=== PATIENT | female | born 1980 | race Caucasian/White ===

== ENCOUNTER → 2017-07-13 10:41 | Outpatient (REF) | payer OTHER, SELFPAY ==
[2017-07-13 13:48] LABS: Basophils # 0.1 K/mm3 (0-0.2); Basophils % 0.6 % (0.1-2.0); Eosinophils # 0.1 K/mm3 (0.0-0.4); Eosinophils % 0.8 % (0.1-12.0); Hematocrit 49.4 % (37.0-47.0); Hemoglobin 16.7 g/dL (12.2-16.2); Lymphocytes # 2.7 K/mm3 (0.7-4.5); Lymphocytes % 24.8 K/mm3 (10-50); Mean Corpuscular HGB Conc 33.9 g/dL (31.8-35.4); Mean Corpuscular Volume 94.5 fl (81-99); Mean Platelet Volume 7.7 fl (7.4-10.4); Monocytes # 0.4 K/mm3 (0.1-1.0); Monocytes % 3.7 % (1.7-9.3); Neutrophils # 7.5 K/mm3 (1.8-7.8); Neutrophils % 70.1 % (37.0-80.0); Platelet Count 243 K/mm3 (142-424); Red Blood Count 5.23 M/mm3 (4.20-5.40); Red Cell Distribution Width 12.5 % (11.5-17.5); White Blood Count 10.7 K/mm3 (4.8-10.8)
[2017-07-13 14:32] LABS: Alanine Aminotransferase 28 U/L (12-78); Albumin/Globulin Ratio 1.3 (1.1-1.8); Alkaline Phosphatase 86 U/L (46-116); Anion Gap 13.2 mEq/L (5-15); Aspartate Amino Transferase 22 U/L (15-37); Bilirubin,Total 0.3 mg/dL (0.2-1.0); Blood Urea Nitrogen 9 mg/dL (7-18); Calcium 9.6 mg/dL (8.5-10.1); Carbon Dioxide 28 mmol/L (21.0-32.0); Chloride 104 mmol/L (98-107); Chol/HDL Ratio 4.6 (1-3.5); Cholesterol 146 mg/dL (140-200); Creatinine,Serum 0.93 mg/dL (0.55-1.02); Estimated Glomerular Filt Rate 68 ml/min (>60); GFR (African American) 82 ML/MIN (>60); Globulin 3.1 gm/dl (1.3-3.2); Glucose 104 mg/dL (74-106); HDL Cholesterol 32 mg/dL (29-89); LDL Cholesterol 77 mg/dL (0-130); Potassium 4.2 mmoL/L (3.5-5.1); Sodium 141 mmol/L (136-145); Thyroid Stimulating Hormone 1.16 uIU/ml (0.358-3.740); Total Protein,Serum 7.1 gm/dL (6.4-8.2); Triglycerides 184 mg/dL (30-200); VLDL Cholesterol 37 mg/dL (0-40)
[2017-07-13 20:21] LABS: T4 (Thyroxine) 9.6 ug/dl (4.7-13.3)
[2017-07-14 12:58] LABS: Vitamin D 25 Hydroxy 31.4 ng/mL (30.0-100.0)
== END ==
LOC: LAB 10:41
PROVIDERS: Visit Provider Physician Assistant
DX: F32.2 Major depressive disorder, single episode, severe without psychotic features (principal); F31.4 Bipolar disorder, current episode depressed, severe, without psychotic features
CPT/HCPCS: 80053; 80061; 82652; 84436; 84443; 85025

== ENCOUNTER → 2018-01-09 17:46 | Outpatient (REF) | payer OTHER, SELFPAY ==
[2018-01-09 18:00] LABS: Basophils # 0.1 K/mm3 (0-0.2); Basophils % 0.9 % (0.1-2.0); Eosinophils # 0.2 K/mm3 (0.0-0.4); Eosinophils % 1.8 % (0.1-12.0); Hematocrit 47.5 % (37.0-47.0); Hemoglobin 15.9 g/dL (12.2-16.2); Lymphocytes # 2.9 K/mm3 (0.7-4.5); Lymphocytes % 34.8 K/mm3 (10-50); Mean Corpuscular HGB Conc 33.5 g/dL (31.8-35.4); Mean Corpuscular Hemoglobin 32.3 pg (27.0-31.2); Mean Corpuscular Volume 96.3 fl (81-99); Mean Platelet Volume 7.7 fl (7.4-10.4); Monocytes # 0.4 K/mm3 (0.1-1.0); Monocytes % 4.7 % (1.7-9.3); Neutrophils # 4.9 K/mm3 (1.8-7.8); Neutrophils % 57.7 % (37.0-80.0); Platelet Count 213 K/mm3 (142-424); Red Blood Count 4.94 M/mm3 (4.20-5.40); Red Cell Distribution Width 12.5 % (11.5-17.5); White Blood Count 8.4 K/mm3 (4.8-10.8)
[2018-01-09 18:17] LABS: Hemoglobin A1C 5.6 % (0.0-7.0)
[2018-01-09 18:20] LABS: Alanine Aminotransferase 28 U/L (12-78); Albumin Level 3.8 gm/dL (3.4-5.0); Albumin/Globulin Ratio 1.2 (1.1-1.8); Alkaline Phosphatase 105 U/L (46-116); Anion Gap 10.3 mEq/L (5-15); Aspartate Amino Transferase 17 U/L (15-37); Bilirubin,Total 0.2 mg/dL (0.2-1.0); Blood Urea Nitrogen 12 mg/dL (7-18); Calcium 9.3 mg/dL (8.5-10.1); Carbon Dioxide 32 mmol/L (21.0-32.0); Chloride 104 mmol/L (98-107); Chol/HDL Ratio 3.5 (1-3.5); Cholesterol 137 mg/dL (140-200); Creatinine Clearance Estimated 144 mL/min (0-300); Creatinine,Serum 0.89 mg/dL (0.55-1.02); Estimated Glomerular Filt Rate 71 ml/min (>60); GFR (African American) 86 ML/MIN (>60); Globulin 3.2 gm/dl (1.3-3.2); Glucose 86 mg/dL (74-106); HDL Cholesterol 39 mg/dL (29-89); LDL Cholesterol 57 mg/dL (0-130); Potassium 4.3 mmoL/L (3.5-5.1); Sodium 142 mmol/L (136-145); T4 (Thyroxine) 8.9 ug/dl (4.7-13.3); Thyroid Stimulating Hormone 2.15 uIU/ml (0.358-3.740); Triglycerides 203 mg/dL (30-200); VLDL Cholesterol 41 mg/dL (0-40)
[2018-01-12 06:43] LABS: Microalbumin, Urine 5.9 ug/mL (Not Estab.)
== END ==
LOC: LAB 17:46
PROVIDERS: Visit Provider Nurse Practitioner Family
DX: G62.9 Polyneuropathy, unspecified (principal); E11.9 Type 2 diabetes mellitus without complications
CPT/HCPCS: 80053; 80061; 82043; 82652; 83036; 84436; 84443; 85025

== ENCOUNTER → 2018-05-09 09:17 | Outpatient (CLI) | payer OTHER, SELFPAY ==
[2018-05-09 09:53] LABS: Basophils # 0.1 K/mm3 (0-0.2); Basophils % 0.7 % (0.1-2.0); Eosinophils # 0.1 K/mm3 (0.0-0.4); Eosinophils % 1.6 % (0.1-12.0); Hematocrit 45.3 % (37.0-47.0); Hemoglobin 15.7 g/dL (12.2-16.2); Lymphocytes # 2.5 K/mm3 (0.7-4.5); Mean Corpuscular HGB Conc 34.8 g/dL (31.8-35.4); Mean Corpuscular Hemoglobin 32.4 pg (27.0-31.2); Mean Corpuscular Volume 93.1 fl (81-99); Mean Platelet Volume 6.9 fl (7.4-10.4); Monocytes # 0.3 K/mm3 (0.1-1.0); Neutrophils # 5.6 K/mm3 (1.8-7.8); Neutrophils % 64.7 % (37.0-80.0); Platelet Count 258 K/mm3 (142-424); Red Blood Count 4.86 M/mm3 (4.20-5.40); Red Cell Distribution Width 13.6 % (11.5-17.5); White Blood Count 8.7 K/mm3 (4.8-10.8)
[2018-05-09 10:46] LABS: Hemoglobin A1C 5.9 % (0.0-7.0)
[2018-05-09 10:56] LABS: Alanine Aminotransferase 30 U/L (12-78); Albumin Level 3.5 gm/dL (3.4-5.0); Albumin/Globulin Ratio 1.1 (1.1-1.8); Alkaline Phosphatase 90 U/L (46-116); Anion Gap 14.1 mEq/L (5-15); Aspartate Amino Transferase 17 U/L (15-37); Bilirubin,Total 0.4 mg/dL (0.2-1.0); Blood Urea Nitrogen 9 mg/dL (7-18); Calcium 8.8 mg/dL (8.5-10.1); Carbon Dioxide 27 mmol/L (21.0-32.0); Chloride 105 mmol/L (98-107); Creatinine,Serum 0.94 mg/dL (0.55-1.02); Estimated Glomerular Filt Rate 67 ml/min (>60); GFR (African American) 81 ML/MIN (>60); Globulin 3.1 gm/dl (1.3-3.2); Glucose 92 mg/dL (74-106); Potassium 4.1 mmoL/L (3.5-5.1); Sodium 142 mmol/L (136-145); Thyroid Stimulating Hormone 2.47 uIU/ml (0.358-3.740); Total Protein,Serum 6.6 gm/dL (6.4-8.2)
== END ==
PROVIDERS: PCP Physician Assistant; Visit Provider Psychiatry & Neurology Psychiatry
DX: F31.81 Bipolar II disorder (principal)
CPT/HCPCS: 36415; 80053; 83036; 84443; 85025

== ENCOUNTER → 2018-11-15 13:16 | Outpatient (CLI) | payer OTHER, SELFPAY ==
[2018-11-15 13:19] LABS: Microscopic, Urine URINE MICROSCOPIC (MICROSCOPIC)
[2018-11-15 14:56] LABS: Appearance,Urine CLEAR (Clear); Bilirubin,Urine Negative (Negative); Blood, Urine 2+ (Negative); Color,Urine YELLOW (Yellow); Glucose,Urine (UA) Negative (Negative); Ketones,Urine Negative (Negative); Leukocyte Esterase,Urine Negative (Negative); Nitrate,Urine Negative (Negative); Protein,Urine Negative (Negative); Specific Gravity, Urine 1.025 (1.005-1.030); Urobilinogen,Urine 0.2 EU/dl (0.2)
[2018-11-15 15:15] LABS: Bacteria,Urine 1+ /lpf; Mucus,Urine Trace /lpf
[2018-11-15 15:29] LABS: Basophils # 0.1 K/mm3 (0-0.2); Basophils % 0.9 % (0.1-2.0); Eosinophils # 0.1 K/mm3 (0.0-0.4); Eosinophils % 1.2 % (0.1-12.0); Hematocrit 43.7 % (37.0-47.0); Hemoglobin 14.7 g/dL (12.2-16.2); Lymphocytes # 2.6 K/mm3 (0.7-4.5); Lymphocytes % 31.7 % (10-50); Mean Corpuscular HGB Conc 33.6 g/dL (31.8-35.4); Mean Corpuscular Volume 98.1 fl (81-99); Mean Platelet Volume 7.2 fl (7.4-10.4); Monocytes # 0.5 K/mm3 (0.1-1.0); Monocytes % 6.1 % (1.7-9.3); Neutrophils # 4.9 K/mm3 (1.8-7.8); Neutrophils % 60.2 % (37.0-80.0); Platelet Count 234 K/mm3 (142-424); Red Blood Count 4.45 M/mm3 (4.20-5.40); Red Cell Distribution Width 13.2 % (11.5-17.5); White Blood Count 8.1 K/mm3 (4.8-10.8)
[2018-11-15 15:41] LABS: Blood Urea Nitrogen 10 mg/dL (7-18); Calcium 8.6 mg/dL (8.5-10.1); Carbon Dioxide 29 mmol/L (21.0-32.0); Chloride 104 mmol/L (98-107); Creatinine,Serum 1.05 mg/dL (0.55-1.02); Estimated Glomerular Filt Rate 58 ml/min (>60); GFR (African American) 71 ML/MIN (>60); Glucose 70 mg/dL (74-106); Sodium 140 mmol/L (136-145)
== END ==
PROVIDERS: Visit Provider Surgery
DX: K42.9 Umbilical hernia without obstruction or gangrene (principal); K46.9 Unspecified abdominal hernia without obstruction or gangrene
CPT/HCPCS: 36415; 80048; 81001; 85025

== ENCOUNTER → 2018-12-20 15:19 | Outpatient (CLI) | payer OTHER, SELFPAY ==
--- NOTE | 2018-12-20 15:25 | CA_ITS ---
APPROVED REPORT Right Lower Extremity Venous Study for DVT. 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 Stinging and burning sensations. Risk Factors Obesity Current Smoker Vein Imaging CFV (R): compressive, spontaneous, phasic, augmentation SFJ (R): compressive, spontaneous, phasic, augmentation FEM (R): compressive, spontaneous, phasic, augmentation POP (R): compressive, spontaneous, phasic, augmentation DFV (R): compressive, spontaneous, phasic, augmentation PTV (R): compressive, spontaneous, phasic, augmentation GSV (R): compressive, spontaneous, phasic, augmentation SSV (R): compressive, spontaneous, phasic, augmentation Peroneals (R):compressive, spontaneous, phasic, augmentation GAS (R): compressive, spontaneous, phasic, augmentation Findings No evidence of DVT or superficial thrombophlebitis in the veins scanned of the right lower extremity. Enlarged groin lymph node noted. Conclusion No evidence of DVT or superficial thrombophlebitis in the veins scanned of the right lower extremity. Enlarged groin lymph node noted. consider ct if sx. persist. Electronically signed by : Maxim Dobbins, 12/20/2018 17:06:28
== END ==
PROVIDERS: PCP Family Medicine; Visit Provider Nurse Practitioner
DX: M79.89 Other specified soft tissue disorders (principal); G89.18 Other acute postprocedural pain
CPT/HCPCS: 93971

== ENCOUNTER → 2019-07-16 10:17 | Outpatient (CLI) | payer OTHER, SELFPAY ==
--- NOTE | 2019-07-16 10:29 | XR_ITS ---
PROCEDURE: XR LUMBAR SPINE MIN 4V CLINICAL INDICATION: LOW BACK PAIN Low back pain radiating into the right leg COMPARISON: LS5 LUMBAR SPINE 5 VIEWS from 10/11/2015 FINDINGS: There is normal alignment. There is mild degenerative disc disease at L4-5 and L5-S1 with facet arthritic changes also present at those levels. There is some minimal anterolisthesis of the coccyx by approximately 6 mm. There is 3 mm anterolisthesis of L4 on L5. no fracture or dislocation. There are mild degenerative changes of the SI joints. There is minimal lumbar curvature convex left. IMPRESSION: Degenerative changes of the lumbar spine with degenerative disc disease at L4-5 and L5-S1 along with facet arthritic changes. These findings have slightly progressed compared to the previous exam. There are degenerative changes also of the SI joints and there is mild anterolisthesis of the coccyx of approximately 6 mm Dictated by: Ollie Newby MD 07/16/2019 11:16 Electronically signed by Ollie Newby MD in [place] 07/16/2019 11:16
--- NOTE | 2019-07-16 10:29 | XR_ITS ---
PROCEDURE: XR ANKLE RT MIN 3V CLINICAL INDICATION: RT ANKLE PAIN COMPARISON: No exams were available for comparison FINDINGS: No acute fracture or dislocation. No lytic or blastic change. There is some minimal spurring of the anterior distal tibia. The ankle mortise is preserved and the talar dome has an unremarkable appearance. There is only a small calcaneal spur and a small enthesophyte at the Achilles insertion. IMPRESSION: Mild osteoarthritic changes with spurring of the anterior and distal aspect the tibia Dictated by: Ollie Newby MD 07/16/2019 11:17 Electronically signed by Ollie Newby MD in [place] 07/16/2019 11:17
== END ==
PROVIDERS: PCP Family Medicine; Visit Provider Nurse Practitioner Family
DX: M54.41 Lumbago with sciatica, right side (principal); M25.571 Pain in right ankle and joints of right foot
CPT/HCPCS: 72110; 73610

== ENCOUNTER 2019-07-26 14:00 | Outpatient (RCR) | payer OTHER, SELFPAY ==
--- NOTE | 2019-07-24 08:27 | HMH.PTOPEV ---
PT Outpatient Evaluation Rehab PT Outpatient Evaluation Start: 07/24/19 08:18 Freq: Status: Active Protocol: Document 07/24/19 08:18 ARMAAN (Rec: 07/24/19 08:26 ARMAAN [id number]) Electronically Signed By Nolan Thompson, PT 07/24/19 08:18 Outpatient Therapy Subjective History Subjective History Pt reports insidious onset R sided LBP beginning ~ 2months ago. Pt reports exacerbation of s/s over the last 2-3 weeks , with radicular s/s from R hip to foot, including burning and weakness. Pt reports recent Lumbar spine xray has revealed OA. Chief Complaint Pain,Stiff,Paresthesia, Weakness Symptom Type Ache,Sharp,Dull,Stabbing, Burning,Numbness,Tingling Symptoms Relieved By Rest/Positioning Symptoms Aggravated By Standing,Physical Activity, Walking Prior Functional Limitations Lifting,Housework,Standing, Walking,Bending/Stooping Current Functional Limitations Lifting,Housework,Standing, Walking,Bending/Stooping Symptom Description Constant but Variable Level of pain today (0-10) 4 Pain scale - at its best (0-10) 4 Pain scale - at its worst (0-10) 10 Lumbopelvic Eval Posture Thoracic Spine Posture Standing Position Neutral Lumbar Spine Posture Standing Position Flattened Assistive device Assistive Devices None / NA Gait Observation General Gait Pattern Observation Antalgic Gait Palapation tenderness left paraspinal tenderness Yes: 2/4 buttock tenderness Yes: 2/4 right thoracic spinal tenderness Yes: 3/4 lumbar spinal tenderness Yes: 3/4 paraspinal tenderness Yes: 3/4 buttock tenderness Yes: 3/4 Lumbar/Sacral Palpation Findings Tenderness,Muscle Guarding Accessory Movement L-spine Vertebrae Accessory Movements Central P/A [place] that Elicit Symptoms L2 bilateral L3 bilateral L4 bilateral L5 bilateral Range of Motion Lumbar Spine Active Flexion Range of 0-35 Motion (degrees) Lumbar Spine Active Extension Range of 0-10 Motion (degrees) Left Lumbar Spine Lateral Flexion Active 0-35 Range of Motion (degrees) Right Lumbar Spine Lateral Flexion 0-20 Active Range of Motion (degrees) Lumbar Spine ROM Limitations Pain Manual Muscle Test Left Knee Extension Strength Grade 5 Normal
== END 2019-07-26 14:05 | disposition home or self-care (01) ==
LOC: PT 14:00
PROVIDERS: PCP Family Medicine; Visit Provider Nurse Practitioner Family
DX: M54.41 Lumbago with sciatica, right side (principal)
CPT/HCPCS: 97010; 97014; 97035; 97110; 97163; G0283

== ENCOUNTER → 2019-07-29 10:07 | Outpatient (POV) | payer OTHER, SELFPAY | PROVIDERS: PCP Specialist; Visit Provider Specialist | DX: M79.604 Pain in right leg (principal); R20.2 Paresthesia of skin; R20.0 Anesthesia of skin | CPT/HCPCS: 95886; 95908 ==

== ENCOUNTER → 2019-08-09 09:38 | Outpatient (CLI) | payer OTHER, SELFPAY ==
--- NOTE | 2019-08-09 09:43 | MR_ITS ---
PROCEDURE: MR LUMBAR SPINE WO CON CLINICAL INDICATION: MIDLINE LOW BACK PAIN WITH RIGHT SIDED SCIATICA Low back pain, bilateral leg pain and numbness COMPARISON: ABDPELWO CT abdomen pelvis wo con from 09/18/2018 XR LUMBAR SPINE MIN 4V from 07/16/2019 TECHNIQUE: Standard multiplanar multiecho sequences are performed without contrast. 3-D MIP and myelographic images are also rendered and reviewed FINDINGS: There is normal alignment. The spinal cord ends at the L1-L2 level. Subcutaneous edema is present in the posterior subcutaneous tissues from L1-L4. T11-T12: Unremarkable. L1-L2: Unremarkable. L2-L3: Unremarkable. L3-L4: Unremarkable. L4-5: There is mild disc desiccation with mild bulging disc and a small annular fissure centrally with facet and ligamentum hypertrophy with mild bilateral lateral recess narrowing in transverse narrowing of the canal. There is 2-3 mm anterolisthesis of L4. L5-S1: Transitional segment is present at the L5-S1 junction is labeled as L5. Degenerative disc disease with a small central/left paracentral disc protrusion versus disc osteophyte complex. This abuts the anterior medial aspect of both S1 nerve roots slightly greater on the left.. IMPRESSION: 1. L4-5: There is mild disc desiccation with mild bulging disc and a small annular fissure centrally with facet and ligamentum hypertrophy with mild bilateral lateral recess narrowing in transverse narrowing of the canal. There is 2-3 mm anterolisthesis of L4. 2. L5-S1: Transitional segment is present at the L5-S1 junction is labeled as L5. Degenerative disc disease with a small central/left paracentral disc protrusion versus disc osteophyte complex. This abuts the anterior medial aspect of both S1 nerve roots slightly greater on the left Dictated by: Ollie Newby MD 08/10/2019 09:54 Electronically signed by Ollie Newby MD in [place] 08/10/2019 09:54
== END ==
PROVIDERS: PCP Specialist; Visit Provider Nurse Practitioner Family
DX: M54.41 Lumbago with sciatica, right side (principal); R20.0 Anesthesia of skin; R20.2 Paresthesia of skin
CPT/HCPCS: 72148; 76376

== ENCOUNTER → 2020-04-16 13:50 | Outpatient (POV) | payer OTHER, SELFPAY ==
[2020-04-16 14:06] VITALS: BP 133/85; PULSE 74; RESP 18; TEMP 36.3; O2SAT 99; BMI 42.3
--- NOTE | 2020-04-16 15:54 | HMH.PMCON ---
Assessment and Plan (1) Sacroiliitis Status: Acute Category: Medical Code(s): M46.1 - Sacroiliitis, not elsewhere classified (2) Low back pain Status: Acute Category: Medical Code(s): M54.5 - Low back pain (3) Bursitis Status: Acute Qualifiers: Bursitis location: hip Hip bursitis location: trochanteric bursitis Laterality: right Qualified Code(s): M70.61 - Trochanteric bursitis, right hip Category: Medical Code(s): M71.9 - Bursopathy, unspecified - Assessment and plan all Dx Assessment and Plan for all problems:: We will set the patient up for a right SI joint injection right greater trochanteric bursa injection. I will see her back after this. I do believe given her symptomology this would be beneficial. She is failed over 6 months of conservative treatment including medication management. Patient is having difficulty with activities of daily living. She is no narcotic candidate due to her ORT. I will follow-up with her after her injection reassess her symptoms at that time she has been instructed to call the office if she has any issues prior to her next appointment. Dr. Hood has reviewed this note and agrees with this plan of care. This note was dictated using voice recognition software and may contain errors or omissions HPI - Data of Consult Consult date: 04/16/20 Requesting Physician: Lizet Cook APRN Primary Care Provider: Hugh Stevenson MD - Consult Narrative Reason for consult: Back pain, leg pain History of present illness: Ms. Ayers is a 39 year old female who presents today for consultation in regards to her back and leg pain. Patient has right-sided back pain. Patient rates it a 7 out of 10. Patient states it does radiate into her groin it does not past her knee ever. Patient states that any kind of physical activity makes it worse well nothing decreases it she is tried and failed over 6 months of anti-inflammatories and medication management. Patient has tried and failed physical therapy. Patient has continued with gabapentin however it is not been as effective as she would like either. She has a positive Ana test SI joint compression test Lashonda's test and distraction test on the right side. Patient is extremely tender over the right SI joint. Patient is also extremely tender over her right greater trochanteric bursa CC: Lizet Cook APRN [facility] History I have reviewed the patient's past medical history: Yes Medical History: Reports:: Anxiety, Depression, Gastroesophageal Reflux Disease(GERD), Seizures Denies:: Asthma, Cancer, Diabetes Mellitus Type 1, Diabetes Mellitus Type 2, Hyperlipidemia, Hypertension, Internal Pacemaker, Migraine, MRSA, Pulmonary Embolism, Transient Ischemic Attacks (TIA) *Have you ever received a pneumonia vaccine?: Yes *Have you received a flu vaccine this season?: Yes Other Medical History: Reports: Other. Denies: Blood Transfusion Reaction Other Surgeries: Yes: Cholecystectomy, Colonoscopy, , Hernia Repair, Tubal Ligation, Other. No: Pacemaker Amputation: No Fractures: No - *Social History Smoking Status: Current every day smoker Tobacco Type: cigarettes # Packs/Day (cigarettes): 1 Alcohol Intake: never Substance Use Type: denies use *Occupational Status:: unemployed Housing: house Household Members: spouse *Travel in the last 8 weeks: None - Psychiatric History Pschychiatric History:: Reports:: Anxiety, Depression Family Hx:: Unable to obtain Review of Systems - Review of Systems ROS General: no recent weight change, no fever, no sleep disturbances Respiratory: no cough, no shortness of air, no recurring pulmonary infections Cardiovascular/Peripheral Vascular: No chest pain, No palpitations, no edema, no shortness of breath. Gastrointestinal: no new onset incontinence, normal bowel movements reported Genitourinary: no new onset incontinence Musculoskeletal: [Right SI joint pain Psychiatric: [place]
== END ==
PROVIDERS: PCP Family Medicine; Visit Provider Clinical Nurse Specialist Family Health
DX: M46.1 Sacroiliitis, not elsewhere classified (principal); M54.5 Low back pain; M70.61 Trochanteric bursitis, right hip
CPT/HCPCS: 99202; G0463

== ENCOUNTER 2020-04-24 10:17 | Day surgery (SDC) | payer OTHER, SELFPAY ==
[2020-04-24 10:43] VITALS: BP 151/100; PULSE 78; RESP 18; TEMP 36.3; O2SAT 93; BMI 40.7
--- NOTE | 2020-04-24 10:58 | HMH.PMPROC ---
- Procedure Date: 04/24/20 Time: 10:58 Anesthesiologist:: Jimenez Hood MD Complications:: None Pre-procedure Diagnosis:: Sacroiliitis and trochanteric bursitis Post-procedure Diagnosis:: Same Indications for Procedure:: This patient is a pleasant 39-year-old white female who we are treating for right-sided hip pain. She is tender over her right SI joint. She does have a positive Lashonda's test on the right side. She is positive Ana test on the right side. She is positive SI joint compression test on the right side. We will do a right SI joint injection and since she is tender over the right trochanteric bursa. So we will do a right trochanteric bursa injection under fluoroscopy today. Procedure Details:: Right SI joint injection under fluoroscopy Informed consent was obtained and the risks and benefits of the procedure was going to the patient. Patient was taken to the procedure room. Patient was placed prone on the procedure table. The right hip was prepped using ChloraPrep. The skin and subcutaneous tissues were anesthetized using lidocaine. I placed a 22-gauge spinal needle into the inferior aspect of the right SI joint. Needle placement was confirmed with dye. After this we injected 5 mL bupivacaine 0.25% and Depo-Medrol 40 mg into the right SI joint. The patient tolerated the procedure well with no complication. Right trochanteric bursa injection under fluoroscopy informed consent was obtained and the risk and benefits of the procedure was explained to the patient. The patient was taken to the procedure room. The right hip was prepped using ChloraPrep. The skin and subcutaneous tissues were anesthetized using lidocaine. I placed a 22-gauge spinal needle and advanced under fluoroscopic guidance until it contacted the right greater trochanter. Needle placement was confirmed with dye. After this I injected bupivacaine 0.25% 5 mL and Depo-Medrol 40 mg into the right trochanteric bursa. Patient tolerated the procedure well with no complications. Plan and Disposition:: Follow-up with her in 2 weeks. Will reevaluate symptoms at that time.
[2020-04-24 11:00] VITALS: BP 141/71; PULSE 84; RESP 18; O2SAT 99
[2020-04-24 11:01] VITALS: BP 142/77; PULSE 74; RESP 18; O2SAT 99
[2020-04-24 11:11] VITALS: BP 152/81; PULSE 72; RESP 18; O2SAT 94
== END 2020-04-24 11:12 | disposition home or self-care (01) ==
LOC: SC.PAINP 10:17
PROVIDERS: PCP Family Medicine; Visit Provider Anesthesiology
DX: M46.1 Sacroiliitis, not elsewhere classified (principal); M70.61 Trochanteric bursitis, right hip; F41.9 Anxiety disorder, unspecified; F32.9 Major depressive disorder, single episode, unspecified; Z88.0 Allergy status to penicillin; Z72.0 Tobacco use; J44.9 Chronic obstructive pulmonary disease, unspecified; K21.9 Gastro-esophageal reflux disease without esophagitis; Z88.6 Allergy status to analgesic agent; Z79.899 Other long term (current) drug therapy
CPT/HCPCS: 20610; 27096; 77002; G0260; J1030; Q9966

== ENCOUNTER → 2020-05-21 09:59 | Outpatient (POV) | payer OTHER, SELFPAY ==
--- NOTE | 2020-05-21 10:56 | HMH.PAINSOAP ---
[facility] Pain Management SOAP Note Subjective:: Patient is presents today for follow-up after right SI joint injection and right trochanteric bursa injection. She has been treated for right low back pain with radiation into right hip. Patient says that she did not get any relief after her injections. Her pain is primarily in her right low back radiating into her right buttock, hip, and into the leg. It does stop at the knee. She rates her pain a 7 out of 10 today. Patient's MRI is notable for nerve impingement at the S1 area. She has tried gabapentin as well as muscle relaxers with no relief. Patient would like to proceed with injective therapy. She has not tried epidurals at this point. She has tried physical therapy with little to no relief. She tried physical therapy for greater than 6 weeks. She also tried some modified home stretching program. Review of Systems General: No recent weight changes, no fever, no sleep disturbances Respiratory: No cough, no shortness of air, no recurring pulmonary infections Cardiovascular/peripheral vascular: No chest pain, no palpitations, no edema, no shortness of breath Gastrointestinal: No new onset incontinence, normal bowel movements reported Genitourinary: No new onset incontinence Musculoskeletal: Right low back pain radiating into right buttock, hip, and leg stopping at the knee Psychiatric: Normal mood/affect Neurological: [Denies weakness in extremities], [denies balance issues] Objective:: Physical exam General: Alert and oriented x3, no acute distress, pleasant and cooperative, [on room air] Lungs: Respirations even and unlabored, symmetrical chest expansion Eyes: PERRL Musculoskeletal: Flexion and extension of lumbar spine somewhat guarded secondary to pain, deep tendon reflexes normal, strength in upper and lower extremities [5/5], [abnormal gait noted] 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 We discussed injective therapy. We will proceed with an epidural of her lumbar spine. We will schedule her for an injection at the L5-S1. She is not on any anticoagulation therapy. She has tried and failed conservative therapies of SI injection and bursa injection along with physical therapy for greater than 6 weeks and home stretching program. She has tried gabapentin with no relief as well as muscle relaxers. We will give her short-term dose of tramadol 50 mg 1 tablet p.o. twice daily per month. This will give her time to get in to have an injection to see if this gives her any relief. Will follow up with her after her injection to reevaluate her symptoms. She is not on any anticoagulation therapy. Patient has been instructed to contact clinic if she has any concerns before her next appointment. The patient and I specifically discussed risk factors for COVID19. These risks include, but are not limited to age greater than 60, heart or lung disease, diabetes, immunosuppression, and travel. We also discussed NSAIDs may worsen COVID19 infection or symptoms. Patient should not use NSAIDs to treat COVID19 signs or symptoms. Patient was also informed that any type of corticosteroid of any form (oral or injection) will decrease the patient's immune system response and may increase the likelihood of COVID19 infection [address] symptoms[address]. Hood has reviewed this note and agrees with this plan of care. This note was dictated using voice recognition software and make contain errors or omissions. [facility] History I have reviewed the patient's past medical history: Yes Medical History: Reports:: Anxiety, Depression, Gastroesophageal Reflux Disease(GERD) Denies:: Asthma, Cancer, Diabetes Mellitus Type 1, Diabetes Mellitus Type 2, Hyperlipidemia, Hypertension, Internal Pacemaker, Migraine, MRSA, Pulmonary Embolism, Seizure
[2020-05-21 11:26] VITALS: BP 129/78; PULSE 78; RESP 18; O2SAT 99; BMI 43.4
== END ==
PROVIDERS: PCP Family Medicine; Visit Provider Clinical Nurse Specialist Family Health
DX: M51.16 Intervertebral disc disorders with radiculopathy, lumbar region (principal)
CPT/HCPCS: 99212; G0463

== ENCOUNTER 2020-05-29 10:24 | Day surgery (SDC) | payer OTHER, SELFPAY ==
[2020-05-29 10:43] VITALS: BP 132/78; PULSE 91; RESP 18; TEMP 36.7; O2SAT 98; BMI 37.6
[2020-05-29 11:21] VITALS: BP 150/84; BP 151/87; PULSE 94; RESP 18; O2SAT 98
[2020-05-29 11:32] VITALS: BP 119/81; PULSE 77; RESP 20; O2SAT 98
--- NOTE | 2020-05-29 11:47 | P.PCN_ITS ---
- Procedure Date: 05/29/20 Time: 11:47 Anesthesiologist:: Jimenez Hood MD Complications:: None Pre-procedure Diagnosis:: Degenerative disc disease of lumbar spine with lumbar radiculopathy symptoms Post-procedure Diagnosis:: Same Indications for Procedure:: This patient is a pleasant 39-year-old white female who we are treating for right hip pain and right leg pain. She has had a right SI joint injection right trochanteric bursa injection which have not given her much relief. Most of her pain is in the right low back and right hip. Will do lumbar epidural steroid injection today to see if this helps with her pain symptoms. Procedure Details:: Epidural steroid injection under fluoroscopy Informed consent was obtained and the risk and benefits of the procedure was explained to the patient. The patient was taken to the procedure room. The patient was placed prone on the procedure table. The patient was prepped and draped in sterile fashion. C-arm fluoroscopy was used to view the lumbar spine. Skin and subcutaneous tissues were anesthetized using lidocaine. I placed an 18-gauge epidural needle and advanced into the L5-S1 interspace using f luoroscopic guidance and [id number] to air. After confirmation of needle placement in the epidural space with dye I injected 2 mL of lidocaine 1.5% with Depo-Medrol 80 mg. Patient tolerated the procedure well with no complications. Plan and Disposition:: We will follow-up with her in 2 weeks. Will reevaluate symptoms at that time.
== END 2020-05-29 11:34 | disposition home or self-care (01) ==
LOC: SC.PAINP 10:25
PROVIDERS: PCP Family Medicine; Visit Provider Anesthesiology
DX: M51.16 Intervertebral disc disorders with radiculopathy, lumbar region (principal); K21.9 Gastro-esophageal reflux disease without esophagitis; F41.9 Anxiety disorder, unspecified; F32.9 Major depressive disorder, single episode, unspecified; Z72.0 Tobacco use; J44.9 Chronic obstructive pulmonary disease, unspecified; Z88.6 Allergy status to analgesic agent; Z88.0 Allergy status to penicillin; Z79.899 Other long term (current) drug therapy
CPT/HCPCS: 62323; J1040; Q9966

== ENCOUNTER → 2020-06-25 10:36 | Outpatient (POV) | payer OTHER, SELFPAY ==
[2020-06-25 10:43] VITALS: BP 152/77; PULSE 72; RESP 18; O2SAT 98; BMI 33.5
--- NOTE | 2020-06-25 10:52 | P.CONS_ITS ---
[facility] Pain Management SOAP Note Subjective:: 39-year-old white female who we are treating for low back pain and right hip pain. Patient had SI joint injection and trochanteric bursa injection with no relief she is also had a lumbar epidural steroid injection with no relief. She rates her pain a 4 out of 10. She is on tramadol and gabapentin and is failed 6 months of conservative therapy. She does have an MRI showing impingement of her S1 nerve root I discussed a neurosurgical consultation at this time. She is agreeable. ROS General: no recent weight change, no fever, no sleep disturbances Respiratory: no cough, no shortness of air, no recurring pulmonary infections Cardiovascular/Peripheral Vascular: No chest pain, No palpitations, no edema, no shortness of breath. Gastrointestinal: no new onset incontinence, normal bowel movements reported Genitourinary: no new onset incontinence Musculoskeletal: Back pain, leg pain Psychiatric: normal mood/ affect Neurological: [denies new onset weakness in extremities], [denies new onset balance issues] Objective:: Physical Exam General: Alert and oriented x3, no acute distress, pleasant and cooperative, [on room air] Lungs: Resps E/U, Symmetrical chest expansion, Eyes: PERRL Musculoskeletal: Flexion and extension of lumbar spine somewhat guarded secondary to pain, deep tendon reflexes normal, strength in upper and lower extremities [5/5], [abnormal gait noted] Neurological: 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 I will follow-up with her afterwards reassess her symptoms at that time she has been instructed to call the office if she has any issues. Dr. Hood has reviewed this note and agrees with this plan of care. This note was dictated using voice recognition software and may contain errors or omissions [facility] History I have reviewed the patient's past medical history: Yes Medical History: Reports:: Anxiety, Depression, Gastroesophageal Reflux Disease(GERD) Denies:: Asthma, Cancer, Diabetes Mellitus Type 1, Diabetes Mellitus Type 2, Hyperlipidemia, Hypertension, Internal Pacemaker, Migraine, MRSA, Pulmonary Embolism, Seizures, Transient Ischemic Attacks (TIA) *Have you ever received a pneumonia vaccine?: Yes *Have you received a flu vaccine this season?: Yes Other Medical History: Reports: Other. Denies: Blood Transfusion Reaction Other Surgeries: Yes: Cholecystectomy, Colonoscopy, (x3), Hernia Repair, Tubal Ligation, Other (fistula repair). No: Pacemaker Amputation: No Fractures: No - *Social History Smoking Status: Current every day smoker Tobacco Type: cigarettes # Packs/Day (cigarettes): 1 Alcohol Intake: never Substance Use Type: denies use *Occupational Status:: other Housing: house Household Members: family *Travel in the last 8 weeks: None - Psychiatric History Pschychiatric History:: Reports:: Anxiety, Depression Family Hx:: Unable to obtain
== END ==
PROVIDERS: PCP Family Medicine; Visit Provider Clinical Nurse Specialist Family Health
DX: M51.16 Intervertebral disc disorders with radiculopathy, lumbar region (principal)
CPT/HCPCS: 99212; G0463

== ENCOUNTER → 2020-07-11 10:21 | Outpatient (CLI) | payer OTHER, SELFPAY ==
--- NOTE | 2020-07-11 10:28 | MR_ITS ---
PROCEDURE: MR LUMBAR SPINE WO CON CLINICAL INDICATION: LBP WITH RT LEG P/N/T Pt c/o chronic lbp with rt leg numbness tingling and pain. COMPARISON: MR MR LUMBAR SPINE WO CON from 08/09/2019 TECHNIQUE: Standard multiplanar multiecho sequences are performed without contrast. 3-D MIP and myelographic images are also rendered and reviewed FINDINGS: There is normal alignment. The spinal cord ends at the L1-L2 level. L1-L2: Unremarkable. L2-L3: Unremarkable. L3-L4: Unremarkable. L4-5: Minimal bulging disc with facet and ligamentum hypertrophic change and disc desiccation. Mild bilateral lateral recess narrowing. There is transverse narrowing of the spinal canal at this region not significantly changed there is the 2 mm anterolisthesis of L4 on L5. L5-S1: Degenerative disc disease. There is a small central/left paracentral disc protrusion not significantly changed abutting the anteromedial aspect of both S1 nerve roots left greater than right. Transitional segment is present at this level and is labeled as L5. Soft tissue edema is present in the lumbar region. IMPRESSION: 1. Overall no change minimal bulging disc at L4-5 with facet and ligamentum hypertrophic change and disc desiccation. Mild bilateral lateral recess narrowing. There is transverse narrowing of the spinal canal at this region not significantly changed there is the 2 mm anterolisthesis of L4 on L5. 2. Overall no significant change in the degenerative disc disease at L5-S1 with a small central/left paracentral disc protrusion abutting the anteromedial aspect of both S1 nerve roots left greater than right. Transitional segment is present at this level and is labeled as L5. Dictated by: Ollie Newby MD 07/11/2020 12:42 Ollie Newby MD in [place] 07/11/2020 12:42
== END ==
PROVIDERS: PCP Family Medicine; Visit Provider Clinical Nurse Specialist Family Health
DX: M54.5 Low back pain (principal)
CPT/HCPCS: 72148; 76376

== ENCOUNTER → 2020-11-06 13:12 | Outpatient (CLI) | payer OTHER, SELFPAY | PROVIDERS: PCP Family Medicine; Visit Provider Family Medicine | DX: Z20.822 Contact with and (suspected) exposure to COVID-19 (principal) | CPT/HCPCS: U0003 ==

== ENCOUNTER → 2020-12-11 19:41 | Outpatient (CLI) | payer OTHER, SELFPAY | PROVIDERS: Visit Provider Nurse Practitioner Family | DX: Z20.822 Contact with and (suspected) exposure to COVID-19 (principal) | CPT/HCPCS: C9803; U0003; U0005 ==

== ENCOUNTER → 2021-03-24 12:13 | Outpatient (CLI) | payer OTHER, SELFPAY | PROVIDERS: PCP Family Medicine; Visit Provider Nurse Practitioner | DX: U07.1 COVID-19 (principal) | CPT/HCPCS: C9803; U0003; U0005 ==

== ENCOUNTER → 2021-03-30 10:13 | Outpatient (CLI) | payer OTHER, SELFPAY | PROVIDERS: Visit Provider Nurse Practitioner | DX: U07.1 COVID-19 (principal) | CPT/HCPCS: C9803; U0003; U0005 ==

== ENCOUNTER → 2021-04-05 10:54 | Outpatient (CLI) | payer OTHER, SELFPAY | PROVIDERS: PCP Family Medicine; Visit Provider Nurse Practitioner | DX: Z20.822 Contact with and (suspected) exposure to COVID-19 (principal) | CPT/HCPCS: C9803; U0003; U0005 ==

== ENCOUNTER → 2021-04-27 15:56 | Outpatient (CLI) | payer OTHER, SELFPAY | PROVIDERS: Visit Provider Nurse Practitioner | DX: Z20.822 Contact with and (suspected) exposure to COVID-19 (principal) | CPT/HCPCS: C9803; U0003; U0005 ==

== ENCOUNTER → 2022-02-22 15:00 | Outpatient (CLI) | payer OTHER, SELFPAY ==
[2022-02-22 17:55] LABS: Adenovirus,PCR Not Detected (NotDetected); Bordetella Pertussis Not Detected (NotDetected); Chlamydophila Pneumoniae, PCR Not Detected (NotDetected); Coronavirus 19, PCR Not Detected (NotDetected); Coronavirus 229E Not Detected (NotDetected); Coronavirus NL63 Not Detected (NotDetected); Coronavirus OC43 Not Detected (NotDetected); Coronovirus HKU1,PCR Not Detected (NotDetected); Human Metapneumovirus Not Detected (NotDetected); Influenza A, PCR Not Detected (NotDetected); Influenza AH1, 2009 Not Detected (NotDetected); Influenza AH1, PCR Not Detected (NotDetected); Influenza AH3,PCR Not Detected (NotDetected); Influenza B, PCR Not Detected (NotDetected); Mycoplasma Pneumoniae, PCR Not Detected (NotDetected); Parainfluenza 1, PCR Not Detected (NotDetected); Parainfluenza 2, PCR Not Detected (NotDetected); Parainfluenza 3, PCR Not Detected (NotDetected); Parainfluenza 4, PCR Not Detected (NotDetected); Respiratory Syncytial Virus Not Detected (NotDetected); Rhinovirus/Enterovirus Not Detected (NotDetected)
[2022-02-22 18:53] LABS: Basophils # 0.1 K/mm3 (0-0.2); Basophils % 0.9 % (0.1-2.0); Eosinophils # 0.1 K/mm3 (0.0-0.4); Eosinophils % 1.2 % (0.1-12.0); Hematocrit 48.4 % (37.0-47.0); Lymphocytes # 4.1 K/mm3 (0.7-4.5); Lymphocytes % 34.9 % (10-50); Mean Corpuscular Hemoglobin 31.9 pg (27.0-31.2); Mean Corpuscular Volume 96.8 fl (81-99); Mean Platelet Volume 8.3 fl (7.4-10.4); Monocytes # 0.6 K/mm3 (0.1-1.0); Neutrophils # 6.9 K/mm3 (1.8-7.8); Neutrophils % 58.1 % (37.0-80.0); Platelet Count 287 K/mm3 (142-424); Red Cell Distribution Width 13.2 % (11.5-17.5); White Blood Count 11.8 K/mm3 (4.8-10.8)
[2022-02-22 19:05] LABS: Alanine Aminotransferase 22 U/L (12-78); Albumin Level 3.9 g/dl (3.5-5.0); Albumin/Globulin Ratio 1.5 (1.1-1.8); Alkaline Phosphatase 123 U/L (38-126); Anion Gap 11.2 mEq/L (5-15); Aspartate Amino Transferase 25 U/L (14-36); Bilirubin,Total 0.2 mg/dl (0.2-1.3); Blood Urea Nitrogen 9 mg/dl (7-17); Calcium 9.4 mg/dl (8.4-10.2); Carbon Dioxide 23 mmol/L (22.0-30.0); Chloride 108 mmol/L (98-107); Chol/HDL Ratio 4.8 (1-3.5); Cholesterol 159 mg/dl (140-200); Estimated Glomerular Filt Rate 69 ml/min (>60); GFR (African American) 83 ML/MIN (>60); Globulin 2.6 g/dL (1.3-3.2); Glucose 104 mg/dl (74-100); HDL Cholesterol 33 mg/dl (40-60); Potassium 4.2 mmoL/L (3.5-5.1); Sodium 138 mmol/L (136-145); Total Protein,Serum 6.5 g/dl (6.3-8.2); Triglycerides 338 mg/dl (30-150); VLDL Cholesterol 68 mg/dL (0-40)
[2022-02-22 19:19] LABS: Direct LDL Cholesterol 82.87 mg/dL (100-129)
[2022-02-22 19:20] LABS: Hemoglobin A1C 6.5 % (4.0-6.0)
[2022-02-22 19:33] LABS: Thyroid Stimulating Hormone 2.35 uIU/mL (0.465-4.68)
== END ==
PROVIDERS: PCP Student in an Organized Health Care Education/Training Program; Visit Provider Student in an Organized Health Care Education/Training Program
DX: J01.10 Acute frontal sinusitis, unspecified (principal); R60.9 Edema, unspecified; R53.83 Other fatigue; E55.9 Vitamin D deficiency, unspecified
CPT/HCPCS: 80053; 80061; 82306; 83036; 84443; 85025; 87581; 87632; 87798; C9803; U0003; U0005

== ENCOUNTER 2022-05-06 21:59 | Emergency (ER) | payer MEDICARE, MEDICAID, SELFPAY ==
[2022-05-06 21:59] VITALS: BP 152/101; PULSE 83; RESP 18; TEMP 36.8; O2SAT 98; BMI 35.4
[2022-05-06 22:01] VITALS: BP 129/63; PULSE 86; O2SAT 97
[2022-05-06 22:41] LABS: Basophils # 0.2 K/mm3 (0-0.2); Basophils % 1.3 % (0.1-2.0); Eosinophils # 0.1 K/mm3 (0.0-0.4); Eosinophils % 1.1 % (0.1-12.0); Hematocrit 49.5 % (37.0-47.0); Hemoglobin 16.8 g/dL (12.2-16.2); Lymphocytes # 3.9 K/mm3 (0.7-4.5); Lymphocytes % 33.5 % (10-50); Mean Platelet Volume 7.8 fl (7.4-10.4); Monocytes # 0.3 K/mm3 (0.1-1.0); Monocytes % 2.6 % (1.7-9.3); Neutrophils # 7.2 K/mm3 (1.8-7.8); Neutrophils % 61.6 % (37.0-80.0); Platelet Count 228 K/mm3 (142-424); Red Cell Distribution Width 13.9 % (11.5-17.5); White Blood Count 11.7 K/mm3 (4.8-10.8)
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
[2022-05-06 22:47] LABS: Chloride 109 mmol/L (98-107); Sodium 142 mmol/L (136-145)
[2022-05-06 22:48] LABS: Potassium 4.4 mmoL/L (3.5-5.1)
[2022-05-06 22:48] LABS: Amphetamine/Metha Screen,Urine Negative ng/ml (<1000); Barbiturates Screen,Urine Negative ng/ml (<200); Benzodiazepines Screen,Urine Negative ng/ml (<200); Cannabinoid Screen,Urine Negative ng/ml (<50); Cocaine Screen,Urine Negative ng/ml (<300); Methadone Screen,Urine Negative ng/ml (<300); Opiate Screen,Urine Negative ng/ml (<300); Phencyclidine Screen,Urine Negative ng/ml (<25)
[2022-05-06 22:50] LABS: Alanine Aminotransferase 31 U/L (12-78); Albumin Level 4.5 g/dl (3.5-5.0); Albumin/Globulin Ratio 1.5 (1.1-1.8); Alkaline Phosphatase 86 U/L (38-126); Anion Gap 11.4 mEq/L (5-15); Aspartate Amino Transferase 31 U/L (14-36); Bilirubin,Total 0.3 mg/dl (0.2-1.3); Blood Urea Nitrogen 6 mg/dl (7-17); Carbon Dioxide 26 mmol/L (22.0-30.0); Creatinine Clearance Estimated 140 mL/min (50-200); Estimated Glomerular Filt Rate 69 ml/min (>60); GFR (African American) 83 ML/MIN (>60); Total Protein,Serum 7.5 g/dl (6.3-8.2)
[2022-05-06 22:51] LABS: Calcium 8.6 mg/dl (8.4-10.2); Ethyl Alcohol 225 mg/dl (0-10); Glucose 142 mg/dl (74-100)
[2022-05-06 23:01] VITALS: BP 118/74; PULSE 74; O2SAT 96
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
[2022-05-06 23:24] VITALS: BP 147/87; PULSE 71; RESP 18; TEMP 36.8; O2SAT 96
== END 2022-05-06 23:36 | disposition left against medical advice (07) ==
PROVIDERS: Emergency Provider Emergency Medicine; PCP Internal Medicine Adolescent Medicine
DX: F41.9 Anxiety disorder, unspecified (principal); F10.929 Alcohol use, unspecified with intoxication, unspecified; R55 Syncope and collapse; F31.9 Bipolar disorder, unspecified; R60.9 Edema, unspecified; F17.210 Nicotine dependence, cigarettes, uncomplicated
CPT/HCPCS: 36415; 80053; 80305; 85025; 96360; 99285

== ENCOUNTER 2022-05-21 22:56 | Emergency (ER) | payer MEDICARE, MEDICAID, SELFPAY ==
[2022-05-21 22:58] VITALS: BP 122/88; PULSE 92; RESP 20; TEMP 36.7; O2SAT 99; BMI 35.5
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
[2022-05-21 23:22] VITALS: BMI 35.5
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
[2022-05-21 23:30] VITALS: BP 130/83; PULSE 95; RESP 18; O2SAT 97
[2022-05-22 00:31] VITALS: BP 128/84; PULSE 95; O2SAT 94
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
[2022-05-22 01:21] VITALS: BP 125/80; PULSE 88; RESP 18; TEMP 36.6; O2SAT 99
[2022-05-22 01:59] VITALS: BP 126/80; PULSE 88; RESP 16; TEMP 37.1; O2SAT 95
== END 2022-05-22 01:59 ==
PROVIDERS: Emergency Provider Emergency Medicine; PCP Family Medicine
DX: S16.1XXA Strain of muscle, fascia and tendon at neck level, initial encounter (principal); S39.012A Strain of muscle, fascia and tendon of lower back, initial encounter; Y04.0XXA Assault by unarmed brawl or fight, initial encounter; F41.8 Other specified anxiety disorders; F31.9 Bipolar disorder, unspecified; R60.9 Edema, unspecified; F17.210 Nicotine dependence, cigarettes, uncomplicated
CPT/HCPCS: 71045; 72110; 72125; 72170; 99284; 99285

== ENCOUNTER 2022-06-14 08:18 | Outpatient (RCR) | payer MEDICARE, MEDICAID, SELFPAY ==
--- NOTE | 2022-06-14 12:15 | HMH.PTOPEV ---
PT Outpatient Evaluation Rehab PT Outpatient Evaluation Start: 06/14/22 08:23 Freq: Status: Active Protocol: Document 06/14/22 08:23 SHIRLENE (Rec: 06/14/22 12:15 SHIRLENE [id number]) E-signed By Jaida Garcia, PT Outpatient Therapy Subjective History Subjective History Pt is a 41 y/o female who reports chronic low back pain for 6 years. Pt reports worsening of symptoms about 2 years ago with progressed symptoms into both legs. Pt reports both legs hurt all over bu the right anterior thigh will go numb with prolonged standing and walking (10 min). Pt also reports the left groin locks and feels like it will give out on her. Pt reports increased urgency to urinate with worsening of LBP and a couple occurrences of incontinence. Pt reports pain is also aggravated by bending forward or prolonged sitting. Pt reports she is only getting 3-4 hours of sleep at night due to inability to get comfortable from pain. Pt also reports increased muscle cramping of her feet and toes at night time as well. Pt reports she had an lumbar spine radiograph on 06/10/22 showing mild disc space narrowing at L5-S1. Pt reports she does not take medication for pain, states ice or heat also does not help . Medical History: Diabetes, high blood pressure Special test: +slump test on the R Chief Complaint Pain,Stiff,Gives out/Unstable Symptom Type Throb,Sharp,Stabbing,Numbness Symptoms Relieved By Nothing Symptoms Aggravated By Sitting,Standing,Bending/ Stooping,Twisting,Walking, Lifting,Sneeze/Coughing Prior Functional Limitations None Current Functional Limitations Lifting,Driving,Standing, Sitting,W
== END 2022-06-14 08:20 | disposition home or self-care (01) ==
LOC: PT 08:18
PROVIDERS: PCP Family Medicine; Visit Provider Family Medicine
DX: M54.50 Low back pain, unspecified (principal)
CPT/HCPCS: 97110; 97163; 97535

== ENCOUNTER 2023-03-24 16:48 | Outpatient (CLI) | payer MEDICARE, MEDICAID, SELFPAY ==
[2023-03-24 15:22] LABS: Basophils # 0.1 K/mm3 (0-0.2); Basophils % 0.8 % (0.1-2.0); Eosinophils # 0.1 K/mm3 (0.0-0.4); Hematocrit 50.6 % (37.0-47.0); Hemoglobin 16.6 g/dL (12.2-16.2); Lymphocytes # 3.3 K/mm3 (0.7-4.5); Lymphocytes % 28.4 % (10-50); Mean Corpuscular HGB Conc 32.8 g/dL (31.8-35.4); Mean Corpuscular Hemoglobin 32.8 pg (27.0-31.2); Mean Corpuscular Volume 99.7 fl (81-99); Mean Platelet Volume 9.1 fl (7.4-10.4); Monocytes # 0.6 K/mm3 (0.1-1.0); Monocytes % 4.7 % (1.7-9.3); Neutrophils # 7.6 K/mm3 (1.8-7.8); Neutrophils % 65.1 % (37.0-80.0); Platelet Count 254 K/mm3 (142-424); Red Blood Count 5.07 M/mm3 (4.20-5.40); Red Cell Distribution Width 13.3 % (11.5-17.5); White Blood Count 11.7 K/mm3 (4.8-10.8)
[2023-03-24 15:39] LABS: Chloride 101 mmol/L (98-107)
[2023-03-24 15:40] LABS: Potassium 4.3 mmoL/L (3.5-5.1); Sodium 139 mmol/L (136-145)
[2023-03-24 15:42] LABS: Alanine Aminotransferase 37 U/L (12-78); Anion Gap 15.3 mEq/L (5-15); Aspartate Amino Transferase 36 U/L (14-36); Blood Urea Nitrogen 10 mg/dl (7-17); Carbon Dioxide 27 mmol/L (22.0-30.0); Estimated Glomerular Filt Rate 68 ml/min (>60); GFR (African American) 83 ML/MIN (>60)
[2023-03-24 15:43] LABS: Albumin Level 4.3 g/dl (3.5-5.0); Albumin/Globulin Ratio 1.5 (1.1-1.8); Alkaline Phosphatase 131 U/L (38-126); Bilirubin,Total 0.5 mg/dl (0.2-1.3); Calcium 9.3 mg/dl (8.4-10.2); Chol/HDL Ratio 5.7 (1-3.5); Cholesterol 183 mg/dl (140-200); Globulin 2.8 g/dL (1.3-3.2); Glucose 146 mg/dl (74-100); HDL Cholesterol 32 mg/dl (40-60); Total Protein,Serum 7.1 g/dl (6.3-8.2); Triglycerides 286 mg/dl (30-150); VLDL Cholesterol 57 mg/dL (0-40)
[2023-03-24 15:55] LABS: Direct LDL Cholesterol 103.51 mg/dL (100-129)
[2023-03-24 15:59] LABS: Free T4 (Free Thyroxine) 1.22 ng/dl (0.78-2.19)
[2023-03-24 16:14] LABS: Thyroid Stimulating Hormone 2.76 uIU/mL (0.465-4.68)
[2023-03-24 16:17] LABS: 25-OH Vitamin D, Total 41.6 ng/mL (30-100)
[2023-03-24 16:21] LABS: Hemoglobin A1C 7.1 % (4.0-6.0)
[2023-04-03 21:25] LABS: HLA-B27 Negative (.)
== END 2023-03-24 23:59 ==
PROVIDERS: PCP Internal Medicine; Visit Provider Internal Medicine
DX: Z13.220 Encounter for screening for lipoid disorders (principal); Z13.29 Encounter for screening for other suspected endocrine disorder; Z13.21 Encounter for screening for nutritional disorder; E66.9 Obesity, unspecified; Z68.39 Body mass index [BMI] 39.0-39.9, adult; Z79.899 Other long term (current) drug therapy; Z72.0 Tobacco use; M19.90 Unspecified osteoarthritis, unspecified site; H57.12 Ocular pain, left eye; M54.59 Other low back pain
CPT/HCPCS: 80053; 80061; 82306; 83036; 84439; 84443; 85025; 86812

== ENCOUNTER 2023-03-28 17:02 | Outpatient (CLI) | payer MEDICARE, MEDICAID, SELFPAY ==
[2023-03-28 17:04] LABS: Adenovirus,PCR Not Detected (NotDetected); Coronavirus 19, PCR Not Detected (NotDetected); Coronavirus 229E Not Detected (NotDetected); Coronavirus NL63 Not Detected (NotDetected); Coronavirus OC43 Not Detected (NotDetected); Coronovirus HKU1,PCR Not Detected (NotDetected); Human Metapneumovirus Not Detected (NotDetected); Influenza A, PCR Not Detected (NotDetected); Influenza AH1, 2009 Not Detected (NotDetected); Influenza AH1, PCR Not Detected (NotDetected); Influenza AH3,PCR Not Detected (NotDetected); Influenza B, PCR Not Detected (NotDetected); Parainfluenza 1, PCR Not Detected (NotDetected); Parainfluenza 2, PCR Not Detected (NotDetected); Parainfluenza 3, PCR Not Detected (NotDetected); Parainfluenza 4, PCR Not Detected (NotDetected); Respiratory Syncytial Virus Not Detected (NotDetected); Rhinovirus/Enterovirus Not Detected (NotDetected)
== END 2023-03-28 23:59 ==
PROVIDERS: PCP Internal Medicine; Visit Provider Internal Medicine
DX: R05.9 Cough, unspecified (principal); R09.89 Other specified symptoms and signs involving the circulatory and respiratory systems
CPT/HCPCS: 87632; 87635

== ENCOUNTER 2023-03-31 16:38 | Outpatient (CLI) | payer MEDICARE, SELFPAY ==
--- NOTE | 2023-03-31 16:39 | MM_ITS ---
PROCEDURE INFORMATION: Exam: MG Bilateral Screening 3D Mammography Exam date and time: 03/31/2023 4:31 PM Age: 42 years old Clinical indication: Screening examination TECHNIQUE: Imaging protocol: Bilateral Screening tomosynthesis and 2D mammography including computer-aided detection (CAD) when performed. COMPARISON: No relevant prior studies available. FINDINGS: MAMMOGRAPHY: Breast composition: There are scattered areas of fibroglandular density. Mass: 1.5 cm ovoid mass in the middle third of the right upper outer quadrant Architectural distortion: None. Calcifications: No suspicious calcifications. Asymmetric density: None. Skin thickening: None. Axillary adenopathy: None. IMPRESSION: Patient to be recalled for right breast ultrasound for further evaluation of a right breast mass. ASSESSMENT: BI-RADS Category 0: Incomplete- Need Additional Imaging Evaluation and/or Prior Mammograms for Comparison
== END 2023-03-31 23:59 ==
LOC: RAD 16:39
PROVIDERS: PCP Internal Medicine; Visit Provider Internal Medicine
DX: Z12.31 Encounter for screening mammogram for malignant neoplasm of breast (principal)
CPT/HCPCS: 77063; 77067

== ENCOUNTER 2023-04-25 13:11 | Outpatient (CLI) | payer MEDICARE, MEDICAID, SELFPAY ==
--- NOTE | 2023-04-25 13:12 | US_ITS ---
PROCEDURE INFORMATION: Exam: US Right Breast, Complete Exam date and time: 04/25/2023 1:35 PM Age: 42 years old Clinical indication: Patient recalled for further evaluation of a right breast mass TECHNIQUE: Imaging protocol: Complete ultrasound of all four quadrants of the right breast and the retroareolar regions, including ultrasound of the axilla when performed. COMPARISON: MG MM DIG SCREENING MAMM BI W/CAD 03/31/2023 4:31 PM FINDINGS: Breast: Sonographic images of the right breast including the retroareolar region, all 4 quadrants and the axilla demonstrates a well-circumscribed hypoechoic solid mass in the 10 o'clock axis 3 cm from the nipple corresponding to the mass mammography. It measures 1.5 x 1.4 x 0.8 cm in dimension. The internal architecture is heterogeneous. Additional 0.3 x 0.3 cm hypoechoic well-circumscribed solid mass in the right 12 o'clock axis 3 cm from the nipple. No architectural distortion or acoustical shadowing. No skin thickening or axillary adenopathy. IMPRESSION: Two solid masses in the right breast. The larger of the 2 is noted on mammography and is heterogeneous in architecture. Ultrasound-guided core biopsy is recommended for further evaluation. If the biopsy is benign, a six-month follow-up targeted right breast ultrasound is recommended to ensure stability of the second smaller mass noted ASSESSMENT: BI-RADS Category 4: Suspicious
== END 2023-04-25 23:59 ==
LOC: RAD 13:11
PROVIDERS: PCP Internal Medicine; Visit Provider Internal Medicine
DX: N63.11 Unspecified lump in the right breast, upper outer quadrant (principal)
CPT/HCPCS: 76641

== ENCOUNTER 2023-05-11 07:45 | Outpatient (CLI) | payer MEDICARE, MEDICAID, SELFPAY ==
--- NOTE | 2023-05-11 07:46 | US_ITS ---
FINAL REPORT CLINICAL HISTORY: RT BREAST MASS -- 10:00 FINDINGS: ULTRASOUND-GUIDED RIGHT BREAST MASS BIOPSY HISTORY: Breast lesion TECHNIQUE: The right breast was prepped in a routine sterile fashion and locally anesthetized with 1% lidocaine. Using sonographic guidance a 15 gauge needle was directed toward the lesion of interest. The needle was positioned within the outer periphery of the lesion. . A total of 3 passes were made with a 16 gauge core biopsy needle. A biopsy marker clip was deployed within the lesion under sonographic guidance. Limited postbiopsy images showed no evidence of significant hemorrhage. Procedure was well tolerated. IMPRESSION: 1. Technically successful image guided biopsy of right breast mass as above. 2. Biopsy marker clip deployed Authenticated and ERN
--- NOTE | 2023-05-11 07:48 | MM_ITS ---
FINAL REPORT CLINICAL HISTORY: clip placement s/p bx FINDINGS: Right breast mammogram CLINICAL INDICATION: Right breast biopsy with clip placement TECHNIQUE: Right CC and true lateral 2D views COMPARISON: Prebiopsy exam 03/31/2023 DENSITY: There are scattered areas of fibroglandular density FINDINGS: Nodules again demonstrated within the right upper outer quadrant with surrounding postbiopsy change. Biopsy marker clip is noted in good position within the nodule. IMPRESSION: Post biopsy mammogram shows marker clip in good position within the right breast lesion RECOMMENDED FOLLOW-UP: Pending histopathology findings Authenticated and ERN
== END 2023-05-11 23:59 ==
LOC: RAD 07:46
PROVIDERS: PCP Internal Medicine; Visit Provider Internal Medicine
DX: N63.11 Unspecified lump in the right breast, upper outer quadrant
CPT/HCPCS: 19083; 77065; 88305

== ENCOUNTER 2023-10-15 13:53 | Emergency (ER) | payer MEDICARE, MEDICAID, SELFPAY ==
--- NOTE | 2023-10-15 14:02 | ED_ITS ---
Discharge Plan Prescriptions Prescriptions: No Action bupropion HCl [Wellbutrin SR] 150 mg tablet sustained-release 12 hr 150 mg PO BID Qty: 60 2RF fexofenadine [Jazlyn Allergy] 180 mg tablet 180 mg PO DAILY Qty: 60 1RF albuterol sulfate [Ventolin HFA] 90 mcg/actuation HFA aerosol inhaler See Rx Instructions .ROUTE .COMPLEX Qty: 18 1RF Dose Instruction: INHALE 1 PUFF BY MOUTH FOUR TIMES A DAY DIRECTED Rx Instructions: INHALE 1 PUFF BY MOUTH FOUR TIMES A DAY DIRECTED omeprazole 40 mg capsule,delayed release(DR/EC) See Rx Instructions .ROUTE .COMPLEX Qty: 90 2RF Dose Instruction: TAKE 1 CAPSULE BY MOUTH ONCE DAILY Rx Instructions: TAKE 1 CAPSULE BY MOUTH ONCE DAILY fluticasone furoate-vilanterol [Breo Ellipta] 200-25 mcg/dose blister with device See Rx Instructions .ROUTE .COMPLEX Qty: 60 9RF Dose Instruction: INHALE 1 PUFF DIALY Rx Instructions: INHALE 1 PUFF DIALY Mounjaro 12.5 mg/0.5 mL pen injector 12.5 mg SQ WEEKLY Qty: 2 2RF quetiapine [Seroquel] 100 mg tablet 100 mg PO HS Qty: 30 2RF Referrals Follow up/Referrals: Goledn Bennett DO [Primary Care Provider] - See instructions Print Language Print Language: Turkmen Discharge ED Provider: Elan Kyle [facility] General Stated complaint: swollen left eye Time Seen by Provider: 10/15/23 14:02 History of Present Illness Provider Complaint: She states that for the past 1 day she has had left eye irritation, redness, yellowish drainage. Related Data Previous Rx's ?Medication ?Instructions ?Recorded albuterol sulfate 90 mcg/actuation See Rx Instructions .Route 12/16/22 aerosol inhaler (Ventolin HFA) .COMPLEX #18 grams bupropion HCl 150 mg tablet,12 hr 150 mg PO BID #60 ea 03/28/23 sustained-release (Wellbutrin SR) omeprazole 40 mg capsule,delayed See Rx Instructions .Route 05/01/23 release .COMPLEX #90 caps fluticasone furoate 200 See Rx Instructions .Route 06/02/23 mcg-vilanterol 25 mcg/dose .COMPLEX #60 ea inhalation powder (Breo Ellipta) tirzepatide 12.5 mg/0.5 mL 12.5 mg (0.5 mL) SQ WEEKLY #2 mL 07/25/23 subcutaneous pen injector (Angie) fexofenadine 180 mg tablet 180 mg PO DAILY #60 tabs 08/07/23 (Jazlyn Allergy) quetiapine 100 mg tablet (Seroquel) 100 mg PO HS #30 tabs 10/09/23 Allergies Allergy/AdvReac Type Severity Reaction Status Date / Time aspirin [ASPIRIN] Allergy Unknown Verified 10/15/23 14:12 Penicillins [PENICILLINS] Allergy Unknown Verified 10/15/23 14:12 PFSH [facility] Disclaimer: The information contained in this section may have been updated after the patient was seen, as this information can be updated by other users. Medical History Abnormal mammogram Abdominal infection Edema Bipolar disorder Anxiety Bipolar disorder Depression Surgical History H/O hernia repair Hx of cholecystectomy S/P arteriovenous (AV) fistula repair History of x3 Social History Smoking Status: Current every day smoker tobacco type: cigarettes packs per day: 1 alcohol intake: never substance use type: denies use current occupational status: unemployed Travel in the last 8 weeks: None household members: family housing: house current occupational exposures/hazards: No caffeine: Yes ROS Obtained: Yes All systems reviewed & no additional complaints except as documented Constitutional Constitutional: Denies chills and Denies fever(s) Eyes Eyes: Reports as per HPI, Denies change in vision and Reports eye discharge ENT Ears, Nose, Mouth, and Throat: Denies dizziness, Denies otalgia and Denies sore throat Cardiovascular Cardiovascular: Denies chest pain Respiratory Respiratory: Denies shortness of breath, Denies chest congestion, Denies cough, Denies stridor and Denies wheezing Gastrointestinal Gastrointestingal: Denies nausea or vomiting Musculoskeletal Musculoskeletal: Reports system reviewed and no additional complaints, except as documented and Denies arthralgias Integumentary/Breasts Skin/Breast: Denies rash Neurologic Neurologic: Denies dizziness and Denies paresthesias Allergic/Immunologic Allergic/Immunologic: Denies wheezing Physical Exam General General appearance: alert and in no apparent distress Head Head exam: atraumatic, normocephalic and normal inspection Eye Eye exam: Present PERRL, EOMI, conjunctival injection and discharge Expanded Eye Exam Eyelids: left: erythema and right: normal inspection Pupils: Left: size (2), Right: size (2) and Bilateral: regular, round and reactive Sclera/Conjunctival: left: injection and exudate and right: normal inspection ENT ENT exam: Present normal exam, normal oropharynx, mucous membranes moist, TM's normal bilaterally and normal external ear exam Neck Neck exam: Present normal inspection, full ROM and trachea midline; Absent meningismus or lymphadenopathy Chest Chest inspection: Present normal inspection and symmetric chest wall rise; Absent tenderness Respiratory Respiratory exam: Present normal lung sounds bilaterally; Absent respiratory distress Cardiovascular Cardiovascular exam: Present regular rate and normal rhythm; Absent JVD Abdominal Exam Abdominal exam: Present soft and normal bowel sounds; Absent distention, tenderness or guarding Extremities Exam Extremities exam: Present normal inspection, full ROM and normal capillary refill; Absent calf tenderness Back Exam Back exam: Present normal inspection; Absent tenderness Neurological Exam Neurological exam: Present alert and oriented X3 Psychiatric Psychiatric exam: Present normal affect and normal mood Skin Skin exam: Present warm, dry, intact and normal color Lymphatic Lymphatic Findings: no adenopathy Medical Decision Making Medical Records Medical records reviewed: No I reviewed the patient's medical records. Jose Miguel Inquiry Pt receiving controlled substance: No
[2023-10-15 14:05] VITALS: BP 153/97; PULSE 77; RESP 18; TEMP 36.8; O2SAT 97; BMI 30.7
[2023-10-15 14:40] VITALS: BP 0/0; PULSE 77; RESP 18; TEMP 36.8
== END 2023-10-15 14:41 | disposition home or self-care (01) ==
PROVIDERS: Emergency Provider Nurse Practitioner Family; PCP Internal Medicine
DX: H10.32 Unspecified acute conjunctivitis, left eye (principal)
CPT/HCPCS: 99204; 99212; G0463

== ENCOUNTER 2023-10-31 14:53 | Outpatient (CLI) | payer MEDICARE, MEDICAID, SELFPAY ==
[2023-10-31 13:31] LABS: Hemoglobin A1C 5.3 % (4.0-6.0)
[2023-10-31 13:43] LABS: Alanine Aminotransferase 22 U/L (12-78); Albumin Level 3.9 g/dl (3.5-5.0); Albumin/Globulin Ratio 1.4 (1.1-1.8); Alkaline Phosphatase 89 U/L (38-126); Anion Gap 10.2 mEq/L (5-15); Aspartate Amino Transferase 28 U/L (14-36); Bilirubin,Total 0.6 mg/dl (0.2-1.3); Blood Urea Nitrogen 15 mg/dl (7-17); Calcium 9.4 mg/dl (8.4-10.2); Carbon Dioxide 27 mmol/L (22.0-30.0); Chloride 107 mmol/L (98-107); Estimated Glomerular Filt Rate 54 ml/min (>60); GFR (African American) 65 ML/MIN (>60); Globulin 2.7 g/dL (1.3-3.2); Glucose 81 mg/dl (74-100); Potassium 5.2 mmoL/L (3.5-5.1); Sodium 139 mmol/L (136-145); Total Protein,Serum 6.6 g/dl (6.3-8.2)
== END 2023-10-31 23:59 | disposition home or self-care (01) ==
LOC: LAB.DROPOF 14:54
PROVIDERS: PCP Internal Medicine; Visit Provider Nurse Practitioner Family
DX: R73.09 Other abnormal glucose (principal); E66.9 Obesity, unspecified; Z68.30 Body mass index [BMI] 30.0-30.9, adult
CPT/HCPCS: 80053; 83036

== ENCOUNTER 2023-12-11 15:52 | Outpatient (CLI) | payer MEDICARE, MEDICAID, SELFPAY ==
[2023-12-11 18:15] LABS: Thyroid Stimulating Hormone 2.37 uIU/mL (0.465-4.68)
[2023-12-13 10:41] LABS: Estradiol 58.2 pg/mL (.); FSH 18.2 mIU/mL (.); LH 16.7 mIU/mL (.); Progesterone 0.3 ng/mL (.)
== END 2023-12-11 23:59 | disposition home or self-care (01) ==
LOC: LAB.DROPOF 12-12 09:29
PROVIDERS: PCP Nurse Practitioner Family; Visit Provider Nurse Practitioner Family
DX: N92.6 Irregular menstruation, unspecified (principal); R53.83 Other fatigue
CPT/HCPCS: 82670; 83001; 83002; 84144; 84443

== ENCOUNTER 2024-04-04 09:45 | Outpatient (CLI) | payer MEDICARE, MEDICAID, SELFPAY ==
[2024-04-04 18:05] LABS: Creatinine,Urine Random 99 mg/dL (Not Estab.)
[2024-04-04 18:13] LABS: Microalbumin < 6.000 mg/L (0-16.7)
== END 2024-04-04 23:59 ==
LOC: LAB.DROPOF 04-05 09:05
PROVIDERS: PCP Internal Medicine; Visit Provider Internal Medicine
DX: E11.9 Type 2 diabetes mellitus without complications (principal)
CPT/HCPCS: 82043; 82570

== ENCOUNTER 2024-05-28 13:28 | Outpatient (CLI) | payer MEDICARE, MEDICAID, SELFPAY | END 2024-05-28 23:59 | disposition home or self-care (01) | LOC: LAB.DROPOF 05-29 14:05 | PROVIDERS: PCP Podiatrist; Visit Provider Podiatrist | DX: B35.1 Tinea unguium (principal) | CPT/HCPCS: 87102; 87206; 87220 ==

== ENCOUNTER 2024-06-13 08:00 | Outpatient (CLI) | payer MEDICARE, MEDICAID, SELFPAY ==
--- NOTE | 2024-06-13 08:05 | CT_ITS ---
FINAL REPORT TECHNIQUE: Thin section axial images were obtained from the lung bases to the pubic symphysis without IV contrast. Oral contrast was administered coronal reconstruction images were obtained from the axial data. Exam was performed using dose reduction technique. CLINICAL HISTORY: Hernia COMPARISON: 09/18/2018 FINDINGS: There are no renal or ureteral stones. There is no hydronephrosis or perinephric stranding. The gallbladder is absent. The remaining unenhanced solid abdominal organs are unremarkable. There is no evidence of small bowel obstruction. The appendix is normal. There is a moderate amount of retained stool in the colon. GI tract is without acute abnormality. There is a 3.3 cm left ovarian cyst which is likely functional. The uterus is unremarkable for age. There is a small midline hernia containing a loop of small bowel. This actually appears to be smaller than on the previous exam. There is no abdominal or pelvic lymphadenopathy or ascites. No acute osseous abnormality is identified. IMPRESSION: Small midline hernia containing small bowel is actually decreased in size from the prior exam. Left ovarian cyst is likely functional. Reviewed, Interpreted and Dictated by Molly Ken MD Transcribed by Carmelina Johnson Authenticated and . [facility]
== END 2024-06-13 23:59 | disposition home or self-care (01) ==
LOC: RAD 08:00
PROVIDERS: PCP Internal Medicine; Visit Provider Surgery
DX: K46.9 Unspecified abdominal hernia without obstruction or gangrene (principal)
CPT/HCPCS: 74176

== ENCOUNTER 2024-10-16 11:12 | Outpatient (CLI) | payer MEDICARE, MEDICAID, SELFPAY ==
[2024-10-16 11:10] VITALS: BMI 24.0
--- OUTSIDE RECORDS SUMMARY | 2024-10-16 11:16 | XMS_ITS | Clinical Summary ---
Demographics Address [address] [place] [address] Phone Unavailable Preferred Language Bruneian Marital Status Single Synagogue Affiliation Unknown Race Unknown Ethnic Group Not or Lati no Author Organization [facility] [place] [address] Care Team Providers Care Tool Smith Name Role Phone Unavailable Primary Care Provider Unavailabl e Social History Tobacco Use Types Packs/Day Years Used Date Smoking Tobacco: Never Assessed Comments Unknown Sex and Gender Information Value Date Recorded Sex Assigned at Not on file Legal Sex Female 4:02 AM EDT Gender Identity Not on file Sexual Orientation Not on file Plan of Treatment Health Maintenance Due Date Last Done Comments Annual Wellness Exam 09/02/1982 DTaP/TDaP/Td (1 - Tdap) 09/02/1998 Hepatitis B Vaccine (1 of 3 - 19+ 3-dose series) 09/02/1998 COVID-19 Vaccine (2023-2 5 season) 2023 Cologuard 09/02/2024 Colon Cancer Screening 09/02/2024 Colonoscopy 09/02/2024 FIT 09/02/2024 Sigmoidoscopy 09/02/2024 Virtual Colonography 09/02/2024 Influenza Vaccine (#1) 2024 Meningococcal B Vaccine Aged Out No l onger eligible based on patient's age to complete this topic Pneumococcal Vaccine 0-49 Aged Out No longer eligible based on patient's age to complete this topic
--- OUTSIDE RECORDS SUMMARY | 2024-10-16 11:16 | XMS_ITS | Clinical Summary ---
[facility] Organization [facility] Address [address] [place] [address] Care Team Providers Care Stop Attacher Name Role Phone Hugh Stevenson MD Primary Care Provider + Social History Tobacco Use Types Packs/Day Years Used Date Smoking Tobacco: Never Assessed Abuse Screen Answer Date Recorded Unsafe at Home or Work/School Not on file Feels Threatened by Someone? Not on file 11/2022 Does Anyone Keep You from Co ntacting Others or Doint Things Outside the Home? Not on file 12/26/2022 Physical Sign of Abuse Present Not on file 1 Housing Stability Answer Date Recorded Current Living Arrangements Not on file 11/2022 Potentially Unsafe Housing Conditions Not on justyn e 12/26/2022 Family and Community Support Answer Cameron e Recorded Help with Day-to-Day Activities Not on file 12/26/2022 Lonely or Isolated Not on file 12/26/2022 Employment Answer Date Recorded Do you want help finding or keeping work or a stan b? Not on file 12/26/2022 Disabilities Answer Date Recorded Concentrating, Remembering, or Making Decisions Difficulty Not on file 12/26/2022 Doing Errands Independently Difficulty Not on fi le 12/26/2022 Education Answer Date Recorded Help with school or training? Not on file Preferred Language Not on file 12/26/2022 Comments Unknown Sex and Gender Information Value Date Recorded Sex Assigned at Not on file Legal Sex Female 11:17 AM EDT Gender Identity Not on file Sexual Orientation Not on file Plan of Treatment Health Maintenance Due Date Last Done Comments Annual Gynecologic Pelvic an d Breast Exam 1980 TDAP/TD VACCINES (1 - Tdap) 09/02/1998 MAMMOGRAM 2019 ANNUAL PHYSICAL 08/25/2021 HEPATITIS C SCREENING 08/25/2021 COVID-19 Vaccine ( - 2023-2 5 season) 2023 COLOGUARD 09/02/2024 COLON CANCER SCREENING 5 YEA R SIGMOIDOSCOPY 09/02/2024 COLONOSCOPY 09/02/2024 COLORECTAL CANCER SCREENING 09/02/2024 CT COLONOGRAPHY 09/02/2024 FECAL OCCULT BLOOD TEST 09/02/2024 FIT Testing (1 year) 09/02/2024 INFLUENZA VACCINE 12/18/2024 Pneumococcal Vaccine 0-49 Aged Out No longer eligible based on patient's age to complete this topic Insurance [facility] Care Teams Stop Attacher Relationship Specialty Start Date End Date Hugh Stevenson MD PCP - General Family Medicine 08/03/20
--- OUTSIDE RECORDS SUMMARY | 2024-10-16 11:16 | XMS_ITS | Clinical Summary ---
Author Organization [facility] Address [address] [place] [address] Care Team Providers Care Tube Coater Name Role Phone Hugh Jacobsen MD Primary Care Provider [phone] Social History Tobacco Use Types Packs/Day Years Used Date Smoking Tobacco: Every Day Alcohol Use Standard Drinks/Week Comments No 0 (1 standard drink = 0.6 oz pur e alcohol) Comments Unknown Sex and Gender Information Value Date Recorded Sex Assigned at Not on file Legal Sex Female 8:09 PM EDT Gender Identity Not on file Sexual Orientation Not on file Last Filed Vital Signs Vital Sign Reading Time Taken Comments Blood Pressure 130/89 07/15/2020 9:27 AM EDT Pulse - - Temperature - - Respiratory Rate - - Oxygen Saturation - - Inhaled Oxygen Concentration - - Weight 127 kg (280 lb 10.3 oz) 07/15/2020 9:27 A M EDT Height 170.2 cm (5' 7 ) 07/15/2020 9:27 AM EDT Body Mass Index 43.96 07/15/2020 9:27 AM EDT Plan of Treatment Health Maintenance Due Date Last Done Comments [facility]-Depression Screening 1980 [facility]-Infant/Child/Adol SDOH Screenings 1980 [facility]-Varicella Vaccines (1 of 2 - 13+ 2-dose series) 09/02/1992 HPV Vaccines (1 - 3-dose series) 09/02/1994 [facility]- SDOH Screenings 09/02/1997 [facility]-Adult SDOH Screenings 09/02/1997 [facility]-DTaP,Tdap,and Td Vaccine s (1 - Tdap) 09/02/1998 [facility]-Hepatitis B Vaccines (1 of 3 - 19+ 3-dose series) 09/02/1998 [facility]-Pap Smear 07/16/2023 07/15/2020 BLO-PRAJG-81 Vaccine (1 - 20 24-25 season) 2023 CT Colonography 09/02/2024 Colonoscopy 09/02/2024 FIT-DNA 09/02/2024 FIT 09/02/2024 FOBT 09/02/2024 Sigmoidoscopy 09/02/2024 [facility]-Colorectal Cancer Screening 09/02/2024 [facility]-Influenza Vaccine (#1) 2024 [facility]-Cervical Cancer Screening 07/15/2025 [facility]-HPV/Cotest 07/15/2025 07/15/2020 [facility]-Zoster Vaccines (1 of 2) 09/02/2029 [facility]-HIB Vaccines Aged Out No longer e ligible based on patient's age to complete this topic [facility]-Hepatitis A Vaccines Aged Out No longer eligible based on patient's age to complete this topic [facility]-IPV Vaccines Aged Out No longer e ligible based on patient's age to complete this topic [facility]-Pneumococcal Vaccine: Pediatrics (0 to 5 Years) and At-Risk Patients (6 to 49 Years) Aged Out No long er eligible based on patient's age to complete this topic [facility]-Rotavirus Vaccines Aged Out No lo nger eligible based on patient's age to complete this topic Procedures Procedure Name Priority Date/Time Associated Diagnosis Comments CYTO DATA CONVERSION Routine 07/15/2020 12:00 AM EDT from Last 3 Months or Most Recently Relevant to Health Maintenance Results * (ABNORMAL) Cytology (07/15/2020 12:00 AM EDT) 07/15/2020 07/16/2020 11: 05 AM EDT Narrative COPATH - 07/27/2020 9:59 AM EDT [facility] MR #: [id number] [place], [place] [address] 1980 (Age: 39) FW Collect Date: 07/15/2020 00:00 Receipt Date: 07/16/2020 11:05 Page 1 DEPARTMENT OF PATHOLOGY AND LABORATORY MEDICINE CYTOPATHOLOGY REPORT Email: [email or web address] ATTENDING MD/Practitioner: Ted Boland, Service: OBE Location: [facility] [place] Reported: 07/27/2020 09:59 Collected: 07/15/2020 00:00 INTERPRETATION A. THIN PREP (CERVICAL/VAGINAL): LOW GRADE SQUAMOUS INTRAEPITHELIAL LESION. SATISFACTORY FOR EVALUATION; ENDOCERVICAL/ TRANSFORMATION ZONE COMPONENT PRESENT. Slide scanned and imaged by Closely ThinPrep Imaging System with manual review of all selected kelley. Electronically Signed Out CHER Tejeda(ASCP) Jannie Neely M.D. Cervical cytology is a screening test primarily for squamous cancers and precursors and has associated false negative and positive results. New technologies such as liquid based sampling may decrease but will not eliminate all false negative results. Regular screening and follow-up of unexplained clinical signs and symptoms are recommended to minimize false negative results. Please see the ASCCP website (www.asccp.org) for followup recommendations. If HPV testing was requested, correlation with the results is suggested (please call Microbiology at [phone] for results). CLINICAL INFORMATION: Menstrual History: Cyclic Date of Last Menstrual Period: 20Jun2020 Other Clinical Conditions: HPV testing requested. SPECIMEN DESCRIPTION: A: THIN PREP (CERVICAL/VAGINAL) THIN PREP PROCESS CELLULAR ENHANCEMENT ICD: Z12.4 Encounter for screening for malignant neoplasm of cervix R87.612 Low grade intrepith lesion cyto smr crvx (LGSIL) F: A; RT IMAGE 85722, 60306 C\V (PO) SNOMED CODES: A; [id number] In cases where a pathologist has signed out the report, the service has been rendered in part by a resident. The signing pathologist has performed and is responsible for the reported pathologic evaluation. Tristen Boland MD LAB PATHOLOGY ORDERA BLES Final Result COPATH from Last 3 Months or Most Recently Relevant to Health Maintenance Insurance [address] [place], [place] [address] [employer] Care Teams Tube Coater Relationship Specialty Start Date End Date Hugh Jacobsen MD [address] [place] [address] [place] [address] PCP - General 07/31/20
--- NOTE | 2024-10-16 11:43 | ECG_ITS ---
APPROVED REPORT Exam: Resting ECG HR:71 bpm ECG Measurements Heart Rate 71 AXES FL 150 P 47 QRSd 84 QRS 50 QT 355 T 47 QTc 378 Conclusion SINUS RHYTHM NORMAL ECG UNCONFIRMED REPORT Electronically signed by : Hugh Jacobsen MD 10/17/2024 08:40:42
[2024-10-16 12:08] LABS: Hematocrit 42.9 % (37.0-47.0); Hemoglobin 14.2 g/dL (12.2-16.2); Mean Corpuscular HGB Conc 33.1 g/dL (31.8-35.4); Mean Corpuscular Hemoglobin 31.6 pg (27.0-31.2); Mean Corpuscular Volume 95.3 fl (81-99); Platelet Count 218 K/mm3 (142-424); Red Blood Count 4.50 M/mm3 (4.20-5.40); White Blood Count 8.9 K/mm3 (4.8-10.8)
[2024-10-16 12:16] LABS: Urine Pregnancy, HCG Qual. Negative (Negative)
[2024-10-16 12:22] LABS: Chloride 102 mmol/L (98-107); Potassium 4.4 mmoL/L (3.5-5.1); Sodium 134 mmol/L (136-145)
[2024-10-16 12:25] LABS: Anion Gap 7.4 mEq/L (5-15); Blood Urea Nitrogen 12 mg/dl (7-17); Calcium 9.4 mg/dl (8.4-10.2); Carbon Dioxide 29 mmol/L (22.0-30.0); Creatinine Clearance Estimated 92 mL/min (50-200); Creatinine,Serum 0.90 mg/dl (0.52-1.04); Estimated Glomerular Filt Rate 68 ml/min (>60); GFR (African American) 82 ML/MIN (>60); Glucose 93 mg/dl (74-100)
[2024-10-16 15:12] LABS: RBC Morphology Normal; Total Cells Counted 100
== END 2024-10-16 23:59 | disposition home or self-care (01) ==
LOC: PREOP 11:13
PROVIDERS: PCP Internal Medicine; Visit Provider Surgery
DX: Z01.810 Encounter for preprocedural cardiovascular examination (principal); Z01.812 Encounter for preprocedural laboratory examination
CPT/HCPCS: 80048; 81025; 85007; 85014; 85018; 85048; 85049; 93005

== ENCOUNTER 2024-10-18 06:01 | Day surgery (SDC) | payer MEDICARE, MEDICAID, SELFPAY ==
[2024-10-16 13:17] VITALS: BMI 24.0
--- NOTE | 2024-10-16 13:18 | SUR.PREOP ---
Pt instructed to hold Mounjaro until after procedure and clear liquids 24 hours prior to procedure, verbalized understanding
[2024-10-18] VITALS (10 sets, daily range): BP systolic 84–112; BP diastolic 50–71; PULSE 63–72; RESP 16–18; TEMP 36.2–36.7; O2SAT 97–100; BMI 24.0
[2024-10-18] MEDS: 0.9 % SODIUM CHLORIDE 1000ML 1,000 ML 25 ML IV (06:46)
[2024-10-18 06:50] LABS: POC Glucose,Bedside 73 (70-110)
--- NOTE | 2024-10-18 06:55 | EXP.ANES.CKL ---
[facility] Disclaimer: The information contained in this section may have been updated after the patient was seen, as this information can be updated by other users. Medical History History of palpitations Diabetes Asthma Abnormal mammogram Abdominal infection Edema Bipolar disorder Anxiety Bipolar disorder Depression Surgical History History of laparotomy H/O hernia repair Hx of cholecystectomy S/P arteriovenous (AV) fistula repair History of Family History Other Family history of diabetes mellitus Social History (Updated 10/18/24 @ 06:25 by Yenifer Boyd RN) Smoking Status: Current every day smoker tobacco type: cigarettes packs per day: 1 alcohol intake: never substance use type: denies use current occupational status: employed Travel in the last 8 weeks?: None household members: family housing: house current occupational exposures/hazards: No caffeine: Yes Have you lived/traveled outside US in past 30 days?: No Contact w/someone who lives/traveled outside US past 30 days?: No Exposure to someone with infectious disease in past 14 days?: No Do you have a fever (greater than 100.4 F or 38 C)?: No Have you tested positive for COVID-19?: No Exposed to someone with COVID-19 in past 14 days?: No Do you have a sore throat?: No Do you have a cough?: No Do you have any weakness?: No Are you experiencing any nausea/vomitting?: No Do you have any diarrhea?: No Are you experiencing any unusual bleeding?: No Do you have any muscle aches/pain?: No Do you have any abdominal pain?: No Are you experiencing loss of taste or smell?: No [facility] Anesthesia Checklist Patient Identification Patient Identification: Arm Band and Verbal (Name & ) Structural Data Admitted From: Home Planned Operative Procedure/s: Laparoscopic incisional hernia repair, possible open Verified Documents: Surgical Consent NPO Status Verified Time NPO: 00:00 Chart Verification Results Verified: ECG Additional verifications Fingerstick Blood Glucose: 73 Anesthesia Reactions: No Hx Blood Transfusions: No Blood Transfusion Reaction: No Airway Assessment Mallampati Score:: Class II C-Spine Mobility Assessed: Yes TMJ Mobility Assessed: Yes Dentition: Edentulous Neurological Assessment Level of Consciousness: Awake, Alert and Appropriate Hx Seizures: No Numbness or tingling in extremities: No Anesthesia Plan Anesthesia Risk discussed: Yes Anesthesia Plan: Verified ASA Class: II Anesthesia Type: General
[2024-10-18] MEDS: CLINDAMYCIN PHOSPHATE/D5W 900 MG/50 ML PIGGYBACK 25 MG (07:22)
[2024-10-18] MEDS: LIDOCAINE 1% 20ML MDV 20 ML (07:50)
--- NOTE | 2024-10-18 09:29 | P.OP_ITS ---
Date of procedure: 10/18/24 Pre-op Diagnosis:: Recurrent incisional hernia at Pfannenstiel incision status post prior primary repair (2 cm defect) Post-op Diagnosis:: Same Procedure performed:: Laparoscopic-assisted open repair of recurrent incisional hernia with 8 cm Ventralex mesh Surgeon:: Tomy Chandler MD MEDICAL CODING INSTRUCTOR:: Tomi Galarza and Magaly Crook Anesthesia: GETA Estimated blood loss (mL): 15 Operative findings:: Profound adhesions along the anterior abdominal wall involving omentum and small bowel Laxity with diastases throughout region 2 cm defect at site of concern with underlying small bowel Operative note:: After informed consent was obtained the patient was taken to the operating room and placed in the supine position. General anesthesia was induced and her abdomen was prepped and draped in a sterile fashion. After infiltration with local anesthetic a stab incision was made in the left upper quadrant. A Veress needle was placed in position. The abdomen was insufflated. A 5 mm optical tro car was placed in the left flank. An additional 5 mm trocar was placed in the mid upper abdomen and an additional 5 mm trocar was placed in the left lower abdomen. Inspection revealed dense adhesions throughout the anterior abdominal wall from above the umbilicus projecting deep into the pelvis. The adhesions included omentum and small bowel. A combination of blunt dissection and sharp dissection was utilized to free the adhesions along the peritoneal margin. Once the dissection was completed, a 2 cm defect was noted within a region of fairly profound diastases . An incision was made overlying the defect. An 8 cm Ventralex mesh was placed in position and then secured with 0 Ethibond. Skin was closed with interrupted 4-0 Monocryl in a mattress fashion to facilitate hemostasis. The abdomen was reinsufflated. Visual inspection revealed no obvious injury or bleeding. The mesh was secured along the proximal circumferential margin with OPTi fix tacks. The lower margin was not secured with tacks secondary to potential proximity to bladder. Pneumoperitoneum was released and all trocars were removed. Skin was reapproximated with interrupted 4-0 Monocryl in a mattress fashion to facilitate hemostasis. Dressings were applied and the patient was transferred to recovery in stable condition after extubation. Condition: stable Disposition: PACU Specimens:: none Complications:: No immediate
--- NOTE | 2024-10-18 09:35 | P.PNANES_ITS ---
[facility] Anesthesia Record Part I Anesthesia Record I Intake, IV Amount: 1,000 Hydration: Adequate Estimated blood loss (mL): 0 Urine output (mL): 0 Blood Pressure: 109/71 SaO2: 98 Pulse Rate: 72 Airway Patency: Patent Respiratory Rate: 18 Temperature: 98 F Patient is:: Awake, Drowsy and Stable Stable to PACU at:: 09:41
[2024-10-18] MEDS: HYDROMORPHONE 2MG/ML SYRINGE 0.5 MG IV ×4 (09:40→09:55)
[2024-10-18] MEDS: KETOROLAC 30MG/ML VIAL 30 MG IV (10:00)
== END 2024-10-18 11:00 | disposition home or self-care (01) ==
PROVIDERS: PCP Internal Medicine; Visit Provider Surgery
PROC: (CPT 49613; principal; 2024-10-18 07:30)
DX: K43.2 Incisional hernia without obstruction or gangrene (principal); J45.909 Unspecified asthma, uncomplicated; E11.9 Type 2 diabetes mellitus without complications; F17.210 Nicotine dependence, cigarettes, uncomplicated; Z88.0 Allergy status to penicillin; Z88.6 Allergy status to analgesic agent; Z79.899 Other long term (current) drug therapy
CPT/HCPCS: 49613; 82962; 96374; C1781; J0736; J1171; J1885; J2003; J7030